=== PATIENT | female | born 1975 | race Two or more races ===

== ENCOUNTER → 2025-04-02 | Emergency (ER) | payer OTHER ==
[~2025-04-02] VITALS: Ht 177.8 cm; Wt 86.2 kg
[~2025-04-02] MED LIST: KETOROLAC TROMETHAMINE 15 MG VIAL IV ONE; KETOROLAC TROMETHAMINE 30 MG VIAL ONE; LEVOTHYROXINE25 MCG PO; ONDANSETRON HCL 2 MG/ML VIAL IV ONE; ONDANSETRON HCL 2 MG/ML VIAL ONE; RINGERS SOLUTION,LACTATED 1,000 ML IV ONE
[2025-04-02 14:43] LABS: BASO % 0.4 % (0.1-1.2); EOS # 0.12 (0.04-0.54); EOS % 2.2 % (0.7-7.0); LYMPH # 1.11 (1.18-3.74); LYMPH % 20.4 % (19.3-53.1); MEAN PLATELET VOLUME 9.90 fl (9.4-12.4); MONO # 0.39 (0.24-0.82); MONO % 7.2 % (4.7-12.5); NEUT # 3.78 (1.56-6.13); NEUT % 69.6 % (34.0-71.1); RED CELL DISTRIBUTION WIDTH 12.0 % (11.6-14.4)
[2025-04-02 15:19] LABS: BUN CREA RATIO 10.0 (7.0-25.0); CREATININE SERUM 0.7 mg/dL (0.55-1.02); GFR 89.31; GLUCOSE FASTING 95.0 mg/dL (65-100); OSMOLALITY SERUM 277.0 MOSM/KG (275-295)
[2025-04-02 15:51] LABS: URINE APPEARANCE Clear; URINE BILIRRUBIN Negative (NEGATIVE); URINE BLOOD Trace; URINE COLOR Yellow; URINE GLUCOSE Negative (NEGATIVE); URINE KETONE 15 (NEGATIVE); URINE LEUKOCYTE Negative; URINE NITRATE Negative; URINE PROTEIN Negative (NEGATIVE); URINE UROBILINOGEN 0.2 E.U./dl
[2025-04-02 15:56] LABS: URINE BACTERIA 21.5 uL (0.0-1933); URINE EPITHELIAL CELLS 3.0 uL (0.0-38.8); URINE RBC 5.1 uL (0.0-20.8); URINE WBC 4.2 uL (0.0-23.2)
[2025-04-02 16:36] LABS: URINE CAST 0.29 uL (0.0-1.40)
== END | disposition left against medical advice (07) ==
LOC: ER 09:34
PROVIDERS: General Practice
DX: R10.22 Pelvic and perineal pain left side (principal); E03.9 Hypothyroidism, unspecified; D27.1 Benign neoplasm of left ovary

== ENCOUNTER 2025-04-03 06:52 | Day surgery (SDC) | payer OTHER ==
[~2025-04-03] VITALS: Ht 152.4 cm; Wt 86.2 kg
[2025-04-03] MEDS ORDERED: LEVOTHYROXINE25 MCG PO (07:10)
--- NOTE | 2025-04-03 07:11 | NUR ---
PACIENTE ALERTA Y ORIENTADA X3 REFIERE PRESENTAR DOLOR PELVICO EN EL [place]. REFIERE TIENE UN QUISTE EN [place] Y ES DE LA CHRISTINE. DUY JOAO. SE MIDEN S/V Y SE UBICA PACIENTE.
[2025-04-03] MEDS ORDERED: FAMOTIDINE/PF 20 MG/2 ML VIAL IV STA (08:12)
[2025-04-03] MEDS ORDERED: ONDANSETRON HCL 2 MG/ML VIAL IV STA (08:12)
[2025-04-03] MEDS ORDERED: 0.9 % SODIUM CHLORIDE 1,000 ML IV STA (08:12)
[2025-04-03] MEDS ORDERED: MORPHINE SULFATE 4 MG/ML CARTRIDGE IV ONE (08:15)
[2025-04-03] MEDS ORDERED: ONDANSETRON 4 MG TAB.RAPDIS PO ONE (08:17)
[2025-04-03] MEDS ORDERED: FAMOtidine 200mg/20ml VIAL ONE (08:18)
[2025-04-03] MEDS ORDERED: ONDANSETRON HCL 2 MG/ML VIAL ONE ×2 (08:19→19:01)
--- NOTE | 2025-04-03 08:35 | NUR ---
SE LE ORIENTA A PACIENTE SOBRE LA ORDEN MEDICA, REFIERE ENTENDER LAS MISMAS. SE CANALIZA Y SE LE COLOCA EL IVF'S, SE LE MISHA LAS MUETRAS, SE ADMINISTRAN LOS MEDICAMENTOS Y SE NOTIFICA PARA REALIZA CT Y PLACA TREVOR LA ORDEN.
[2025-04-03 08:39] LABS: BASO % 0.6 % (0.1-1.2); EOS # 0.09 (0.04-0.54); EOS % 2.5 % (0.7-7.0); LYMPH # 0.70 (1.18-3.74); LYMPH % 19.3 % (19.3-53.1); MEAN PLATELET VOLUME 9.90 fl (9.4-12.4); MONO # 0.36 (0.24-0.82); MONO % 9.9 % (4.7-12.5); NEUT # 2.45 (1.56-6.13); NEUT % 67.4 % (34.0-71.1); RED CELL DISTRIBUTION WIDTH 12.0 % (11.6-14.4)
[2025-04-03 08:56] LABS: INR 0.98
[2025-04-03 08:57] LABS: URINE APPEARANCE Clear; URINE BILIRRUBIN Negative (NEGATIVE); URINE BLOOD Trace; URINE COLOR Yellow; URINE GLUCOSE Negative (NEGATIVE); URINE KETONE 15 (NEGATIVE); URINE LEUKOCYTE Trace; URINE NITRATE Negative; URINE PROTEIN Negative (NEGATIVE); URINE UROBILINOGEN 0.2 E.U./dl
[2025-04-03 09:01] LABS: URINE BACTERIA 520.7 uL (0.0-1933); URINE EPITHELIAL CELLS 18.7 uL (0.0-38.8); URINE RBC 11.5 uL (0.0-20.8); URINE WBC 20.6 uL (0.0-23.2)
[2025-04-03 09:15] LABS: BUN CREA RATIO 11 (7.0-25.0); CREATININE SERUM 0.74 mg/dL (0.55-1.02); GFR 83.76; GLUCOSE FASTING 102 mg/dL (65-100); OSMOLALITY SERUM 280 MOSM/KG (275-295)
[2025-04-03 09:16] LABS: HCG QUANTITATIVE < 1 mUI/mL (1-3)
[2025-04-03 09:25] LABS: URINE CAST 0.00 uL (0.0-1.40)
[2025-04-03] MEDS ORDERED: POVIDONE-IODINE 118 ML BOTT TOP ONE (15:26)
[2025-04-03] MEDS ORDERED: ONDANSETRON HCL 2 MG/ML VIAL IV ONE (18:15)
[2025-04-03] MEDS ORDERED: KETOROLAC TROMETHAMINE 30 MG VIAL IV ONE (18:45)
[2025-04-03] MEDS ORDERED: RINGERS SOLUTION,LACTATED 1,000 ML IV SCH (18:45)
[2025-04-03] MEDS ORDERED: KETOROLAC TROMETHAMINE 30 MG VIAL ONE (19:02)
[2025-04-03 23:24] VITALS: BP 132/80; O2SAT 100
== END 2025-04-03 22:45 | disposition home or self-care (01) ==
LOC: ER 06:52 → CIR.AMB 06:52 → O/R 12:43 → ER 12:43 → O/R 19:47 → SURG 19:47 → O/R 19:58
PROVIDERS: ATTEND General Practice
DX: D27.1 Benign neoplasm of left ovary (principal); D39.8 Neoplasm of uncertain behavior of other specified female genital organs; N83.512 Torsion of left ovary and ovarian pedicle